=== PATIENT | female | born 1990 ===

== ENCOUNTER 2020-02-16 13:56 | Emergency (ER) | payer OTHER ==
[~2020-02-16] VITALS: Ht 157.5 cm; Wt 42.6 kg
[2020-02-16] MEDS ORDERED: PRENATAL CAPLE1 EAC1 (14:05)
== END 2020-02-16 20:54 | disposition home or self-care (01) ==
LOC: ER 13:56
DX: N93.8 Other specified abnormal uterine and vaginal bleeding (principal); Z33.1 Pregnant state, incidental